=== PATIENT | female | born 1985 | race African-American/Black ===

== ENCOUNTER → 2018-02-12 | Outpatient (CLI) | payer OTHER | LOC: CAT 13:51 | DX: N20.0 Calculus of kidney (principal); N83.202 Unspecified ovarian cyst, left side; N83.201 Unspecified ovarian cyst, right side ==

== ENCOUNTER → 2018-03-16 | Outpatient (CLI) | payer OTHER | LOC: CAT 09:26 | DX: N20.0 Calculus of kidney (principal); N83.202 Unspecified ovarian cyst, left side ==

== ENCOUNTER → 2018-05-12 | Outpatient (CLI) | payer OTHER | LOC: ULTRA 15:11 | DX: N83.201 Unspecified ovarian cyst, right side (principal); N83.202 Unspecified ovarian cyst, left side; N93.9 Abnormal uterine and vaginal bleeding, unspecified ==